=== PATIENT | male | born 1960 | race Two or more races ===

== ENCOUNTER 2016-04-01 01:52 | Emergency (ER) | payer MEDICAID, OTHER ==
[~2016-04-01] VITALS: Ht 177.8 cm; Wt 86.0 kg
[2016-04-01 02:17] VITALS: Ht 177.8 cm; Wt 86.0 kg
[2016-04-01 04:34] LABS: URINE BLOOD (Dip) POC Trace-intact (NEGATIVE)
[2016-04-01] MEDS ORDERED: CLOT30CR24 TOP (04:56)
[2016-04-01] MEDS ORDERED: CEPH-443 PO (04:56)
[2016-04-01] MEDS ORDERED: BACTDS PO (04:56)
[2016-04-01] MEDS ORDERED: FLUC150T17 PO (04:56)
[2016-04-01] MEDS ORDERED: LANT3I SC (05:27)
[2016-04-01] MEDS ORDERED: METF500T4 PO (05:27)
--- NOTE | 2016-04-01 05:29 | ERD ---
ER Documentation Chief Complaint Date/Time DATE: 04/01/16 TIME: 05:26 Chief Complaint Redness and burning pain on the tip of the penis area started today HPI 55-year-old male presents here in emergency department for complaint of redness , burning sensation on the tip of the penile area started today. Patient describes the pain as burning pain, 4/10 scale, is worse upon touching the area. Patient is complaining of redness of affected area and inflammation. Patient denies any hematuria dysuria fever or chills. Patient denies any new sexual partners. Patient is not sexually active at this time. Patient denies any penile discharge. Patient did not take any medications to help with symptoms. ROS All systems reviewed and are negative except as per history of present illness. Medications Home Meds Active Scripts Cephalexin* (Keflex*) 500 Mg Capsule, 500 MG PO QID for 10 Days, CAP Prov:DAGMAR SHERMAN CONSULTING ENGINEER 04/01/16 Sulfamethoxazole-Trimethoprim* (Bactrim* DS) 800-160 Mg Tab, 1 TAB PO BID for 10 Days, TAB Prov:DAGMAR SHERMAN CONSULTING ENGINEER 04/01/16 Clotrimazole* (Clotrimazole* AF) 1% - 30 Gm Cream.gm., 1 APPLIC TOP BID for 7 Days, TUB Prov:DAGMAR SHERMAN CONSULTING ENGINEER 04/01/16 Fluconazole* (Diflucan*) 150 Mg Tablet, 150 MG PO ONCE, #1 TAB Prov:DAGMAR SHERMAN CONSULTING ENGINEER 04/01/16 Reported Medications Insulin Glargine* (Lantus*) Unknown Strength Soln, SC BID, #1 VIAL 04/01/16 Metformin* (Glucophage*) Unknown Strength Tab, PO DAILY, #20 TAB 04/01/16 Allergies Allergies: Coded Allergies: Diltiazem (Verified Allergy, Unknown, 03/09/07) PMhx/Soc Medical and Surgical Hx: pt denies Surgical Hx Anesthesia Reaction: No Hx Neurological Disorder: No Hx Respiratory Disorders: No Hx Cardiac Disorders: No Hx Psychiatric Problems: No Hx Miscellaneous Medical Probl: Yes (diabetes) Hx Alcohol Use: No Hx Substance Use: No Hx Tobacco Use: No Smoking Status: Never smoker FmHx Family History: No coronary disease, No diabetes, No other Physical Exam Vitals Vital Signs Date Time Temp Pulse Resp B/P Pulse Ox O2 Delivery O2 Flow Rate FiO2 04/01/16 02:17 98.0 108 20 129/84 100 Physical Exam GENERAL: The patient is well developed and appropriate for usual state of health, in no apparent distress. CHEST: Clear to auscultation bilaterally. There are no rales, wheezes or rhonchi. HEART: Regular rate and rhythm. No murmurs, clicks, rubs or gallops. No S3 or S4. ABDOMEN: Soft, nontender and nondistended. Good bowel sounds. No rebound or guarding. No gross peritonitis. No gross organomegaly or masses. No Cortez sign or McBurney point tenderness. BACK: No midline or flank tenderness. EXTREMITIES: Equal pulses bilaterally. There is no peripheral clubbing, cyanosis or edema. No focal swelling or erythema. Full range of motion. Grossly neurovascularly intact. NEURO: Alert and oriented. Cranial nerves 2-12 intact. Motor strength in all 4 extremities with 5/5 strength. Sensation grossly intact. Normal speech and gait. SKIN: There is no apparent rash or petechia. The skin is warm and dry. HEMATOLOGIC AND LYMPHATIC: There is no evidence of excessive bruising or lymphedema. No gross cervical, axillary, or inguinal lymphadenopathy. : Noted erythema and tenderness on palpation on the tip of the penile area with some serous discharge. No penile discharge noted. No fluctuance noted. No scrotal swelling or tenderness noted. No palpable masses noted. Results 24 hrs Laboratory Tests Test 04/01/16 04:35 Bedside Urine Blood Trace-intact Bedside Urine Glucose (UA) 0.50% Bedside Urine Ketones (LAB) 4+ Bedside Urine Leukocyte Esterase (L Negative Bedside Urine Nitrite (LAB) Negative Bedside Urine Protein (LAB) Negative Bedside Urine pH (LAB) 5.0 Procedures/MDM Medical decision making: Patient symptoms suspect is consistent with balanitis, possible Avelina, also can have secondary infection such as MRSA infection possibly, since patient's high risk, diabetic, patient will be given antibiotics , Bactrim and Keflex, will be also given Diflucan and clotrimazole to help with symptoms. No symptoms of any necrosis. No symptoms of sepsis at this time. No symptoms of any abscess. Low suspicion for STD. Patient is advised to follow-up with primary care doctor in 2-3 days for reevaluation of symptoms. Patient was advised to return to emergency department for any worsening symptoms. Departure Diagnosis: Primary Impression: Jalen Condition: Stable Patient Instructions: DAGMAR Gonzales NP Apr 01, 2016 05:29
== END 2016-04-01 05:37 | disposition home or self-care (01) ==
LOC: FTE 01:52
DX: N48.1 Balanitis (principal); E11.9 Type 2 diabetes mellitus without complications; Z79.4 Long term (current) use of insulin; Z79.84 Long term (current) use of oral hypoglycemic drugs
CPT/HCPCS: 81003; Z7502; 99284